=== PATIENT | female | born 1980 | race Caucasian/White ===

== ENCOUNTER → 2022-03-29 | Outpatient (CLI) | payer MEDICAID ==
[2022-03-29 11:33] LABS: Basophils # (A) 0.06 X 10*3/uL (0.00-0.10); Basophils % (A) 0.6 %; Eosinophils # (A) 0.16 X 10*3/uL (0.04-0.35); Eosinophils % (A) 1.5 %; HCT 34.2 % (37.2-46.3); HGB 10.1 g/dL (12.0-15.0); Immature Grans, Automated 0.4 %; Lymphocytes % (A) 22.2 %; MCH 23.5 pg (27.0-32.0); MCHC 29.5 g/dL (32.0-37.0); MCV 79.7 fL (80.0-97.0); Mean Platelet Volume 9.5 fL (9.5-12.2); Monocytes # (A) 0.77 X 10*3/uL (0.20-1.00); Monocytes % (A) 7.4 %; NRBC Per 100 WBC 0 /100 WBCS (0.0-0.0); Neutrophils # (A) 7.05 X 10*3/uL (1.80-7.70); Neutrophils % (A) 67.9 %; Platelet Count 402 X 10*3/uL (140-440); RBC 4.29 X 10*6/uL (4.10-5.20); RDW 15.9 % (11.5-14.5); WBC 10.38 X 10*3/uL (4.50-10.00)
[2022-03-29 12:09] LABS: Chol/HDL Ratio 4.54 Ratio
== END | disposition home or self-care (01) ==
LOC: LABWHC1 08:25
PROVIDERS: ATTEND Internal Medicine
DX: Z00.00 Encounter for general adult medical examination without abnormal findings (principal); E00.0 Congenital iodine-deficiency syndrome, neurological type
CPT/HCPCS: 36415; 80061; 84443; 85025

== ENCOUNTER → 2022-07-19 | Outpatient (CLI) | payer MEDICAID ==
[2022-07-19 23:26] LABS: Basophils # (A) 0.06 X 10*3/uL (0.00-0.10); Basophils % (A) 0.8 %; Eosinophils # (A) 0.13 X 10*3/uL (0.04-0.35); Eosinophils % (A) 1.7 %; HCT 33.2 % (37.2-46.3); HGB 9.8 g/dL (12.0-15.0); Immature Grans, Automated 0.3 %; Lymphocytes # (A) 2.12 X 10*3/uL (0.90-5.00); MCH 22.7 pg (27.0-32.0); MCHC 29.5 g/dL (32.0-37.0); MCV 76.9 fL (80.0-97.0); Mean Platelet Volume 9.4 fL (9.5-12.2); Monocytes # (A) 0.61 X 10*3/uL (0.20-1.00); Monocytes % (A) 7.8 %; NRBC Per 100 WBC 0 /100 WBCS (0.0-0.0); Neutrophils # (A) 4.91 X 10*3/uL (1.80-7.70); Neutrophils % (A) 62.4 %; Platelet Count 456 X 10*3/uL (140-440); RBC 4.32 X 10*6/uL (4.10-5.20); RDW 16.4 % (11.5-14.5); WBC 7.85 X 10*3/uL (4.50-10.00)
[2022-07-19 23:35] LABS: Erythrocyte Sedimentation Rate 23 mm/Hr (0-20)
[2022-07-19 23:42] LABS: ALT 12 U/L (8-44); AST 16 U/L (13-35); African American GFR (CKD) 118.3 (60.0-200.0); Albumin 4.3 g/dL (3.8-4.9); Albumin/Globulin Ratio 1.64 (1.60-3.17); Alkaline Phosphatase 91 U/L (41-126); Bilirubin, Conjugated <0.20 mg/dL (0.20-0.40); Blood Urea Nitrogen 12.3 mg/dL (9.0-27.0); Globulin 2.6 g/dL (1.6-3.3); Non-African American GFR(CKD) 102.1 (60.0-200.0); Total Bilirubin <0.15 mg/dL (0.30-1.20); Total Protein 6.9 g/dL (6.2-8.2)
[2022-07-19 23:44] LABS: Appearance,Urine Turbid (Clear); Bacteria,Urine 1+ /HPF (None Seen); Bilirubin,Urine Negative (Negative); Blood,Urine Moderate (Negative); Calcium Oxalate Crystals,Urine Present /LPF (None Seen); Color,Urine Yellow (Yellow); Ketones,Urine Trace mg/dL (Negative); Nitrite,Urine Negative (Negative); PH, Urine 5.5 (5.0-8.0); Specific Gravity,Urine 1.029 (1.001-1.030)
[2022-07-19 23:59] LABS: Hepatitis A Antibody IgM Nonreactive (Nonreactive); Hepatitis B Core IgM Nonreactive (Nonreactive); Hepatitis B Surface Antigen Nonreactive (Nonreactive); Hepatitis C IgG Antibody Nonreactive (Nonreactive)
== END | disposition home or self-care (01) ==
LOC: LABWHC1 10:38
PROVIDERS: ATTEND Internal Medicine Rheumatology
DX: M05.70 Rheumatoid arthritis with rheumatoid factor of unspecified site without organ or systems involvement (principal); M06.4 Inflammatory polyarthropathy; Z79.899 Other long term (current) drug therapy
CPT/HCPCS: 36415; 80074; 80076; 81001; 82565; 84520; 85025; 85652; 86140

== ENCOUNTER 2023-04-30 16:52 | Emergency (ER) | payer MEDICAID ==
[2023-04-30 17:04] VITALS: TEMP 98.1
--- NOTE | 2023-04-30 17:26 | ED ---
General Adult HPI - General Chief complaint: Extremity Injury, Upper Stated complaint: Fall Time Seen by Provider: 04/30/23 17:06 Source: patient, RN notes reviewed Mode of arrival: ambulatory Limitations: no limitations - History of Present Illness Initial comments: 43-year-old female presents to the emergency department for evaluation of left wrist pain following a fall. Patient states that she was on a ladder that was not locked when it slid down causing her to fall backwards. She reports falling around 4 feet. She states that she landed on her buttocks in the gravel and hit her left arm on the concrete. She did not hit her head or lose consciousness. She is not on blood thinners. She denies any other injury. She is able to ambulate. Denies significant past medical history. She does have an allergy to NSAIDs. - Related Data Previous Rx's Medication Instructions Recorded Cephalexin [Keflex] 500 mg PO Q6HR #40 cap 04/30/23 HYDROcodone/APAP 5-325MG [[place] 1 tab PO Q4HR PRN 3 Days #18 tab 04/30/23 5-325] Allergies Allergy/AdvReac Type Severity Reaction Status Date / Time NSAIDS (Non-Steroidal Allergy Unknown Verified 04/30/23 16:58 Anti-Inflamma Review of Systems ROS Statement: Those systems with pertinent positive or pertinent negative responses have been documented in the HPI. ROS Other: All systems not noted in ROS Statement are negative. Past Medical History Additional Past Medical History / Comment(s): RA History of Any Multi-Drug Resistant Organisms: None Reported Past Surgical History: Section, Cholecystectomy, Tonsillectomy Past Psychological History: No Psychological Hx Reported Smoking Status: Never smoker Past Alcohol Use History: None Reported Past Drug Use History: None Reported General Exam Limitations: no limitations General appearance: alert, in no apparent distress Head exam: Present: atraumatic, normocephalic, normal inspection Eye exam: Present: normal appearance, PERRL, EOMI. Absent: scleral icterus, conjunctival injection, periorbital swelling ENT exam: Present: normal exam, mucous membranes moist Neck exam: Present: normal inspection. Absent: tenderness, meningismus, lymphadenopathy Respiratory exam: Present: normal lung sounds bilaterally. Absent: respiratory distress, wheezes, rales, rhonchi, stridor Cardiovascular Exam: Present: regular rate, normal rhythm, normal heart sounds. Absent: systolic murmur, diastolic murmur, rubs, gallop, clicks GI/Abdominal exam: Present: soft, normal bowel sounds. Absent: distended, tenderness, guarding, rebound, rigid Extremities exam: Present: tenderness, normal capillary refill, other (Deformity to the left wrist with dorsal angulation). Absent: full ROM Back exam: Present: normal inspection Neurological exam: Present: alert, oriented X3 Psychiatric exam: Present: normal affect, normal mood Skin exam: Present: warm, dry. Absent: intact Course Vital Signs 04/30/23 04/30/23 04/30/23 16:53 18:55 19:18 Temperature 98.1 F Pulse Rate 94 86 82 Respiratory 16 18 18 Rate Blood Pressure 142/90 118/90 O2 Sat by Pulse 99 100 100 Oximetry 04/30/23 04/30/23 04/30/23 19:19 19:24 19:29 Temperature Pulse Rate 80 86 87 Respiratory 18 14 16 Rate Blood Pressure 118/100 123/91 125/98 O2 Sat by Pulse 100 100 98 Oximetry 04/30/23 04/30/23 04/30/23 19:34 19:39 19:40 Temperature Pulse Rate 82 77 79 Respiratory 18 18 18 Rate Blood Pressure 126/89 128/89 130/79 O2 Sat by Pulse 99 96 96 Oximetry 04/30/23 04/30/23 04/30/23 19:55 20:10 20:15 Temperature Pulse Rate 82 80 78 Respiratory 18 18 16 Rate Blood Pressure 117/74 117/74 118/58 O2 Sat by Pulse 98 99 98 Oximetry 04/30/23 04/30/23 20:30 21:00 Temperature Pulse Rate 74 74 Respiratory 18 18 Rate Blood Pressure 115/60 115/68 O2 Sat by Pulse 98 98 Oximetry Procedures - Orthopedic Fracture Reduction Fracture #1 Consent Obtained: verbal consent Side: left Fracture Reduction Location: radius Analgesia: procedural sedation Post Reduction X-rays Demonstrate: acceptable reduction Post-Reduction Neuro Exam: intact Post-Reduction Vascular Exam: intact Splint Applied: Yes Patient Tolerated Procedure: well, no complications - Orthopedic Splinting/Casting Injury #1 Side: left Upper Extremity Immobilizer: sugar tong splint Medical Decision Making - Medical Decision Making Was pt. sent in by a medical professional or institution (, PA, REFINERY OPERATOR ASSISTANT, urgent care, hospital, or care home...) When possible be specific @ -No Did you speak to anyone other than the patient for history (EMS, parent, family, police, friend...)? What history was obtained from this source @ -No Did you review nursing and triage notes (agree or disagree)? Why? @ -I reviewed and agree with nursing and triage notes Were old charts reviewed (outside hosp., previous admission, EMS record, old EKG, old radiological studies, urgent care reports/EKG's, care home records)? Report findings @ -No old charts were reviewed Differential Diagnosis (chest pain, altered mental status, abdominal pain women, abdominal pain men, vaginal bleeding, weakness, fever, dyspnea, syncope, headach e, dizziness, GI bleed, back pain, seizure, CVA, palpatations, mental health, musculoskeletal)? @ -Differential Musculoskeletal Muscular strain, contusion, ligament sprain, fracture, arthritis, septic arthritis, bursitis, cellulitis, muscle spasm, nerve compression, DVT, arterial occlusion, herpes zoster, electrolyte abnormality, tumor.... This is not meant to be in all inclusive list EKG interpreted by me (3pts min.). @ -None X-rays interpreted by me (1pt min.). @ -X-ray of the left wrist shows a distal radius fracture with comminution, 1 shaft width dorsal displacement. Postreduction x-ray shows improvement in the anatomical alignment of the fracture CT interpreted by me (1pt min.). @ -None done U/S interpreted by me (1pt. min.). @ -None done What testing was considered but not performed or refused? (CT, X-rays, U/S, labs)? Why? @ -None What meds were considered but not given or refused? Why? @ -None Did you discuss the management of the patient with other professionals (pro fessionals i.e. , PA, REFINERY OPERATOR ASSISTANT, lab, RT, psych nurse, social media designer, ceramics instructor, teacher, aadc plans staff officer, shoe caser)? Give summary @ -No Was smoking cessation discussed for >3mins.? @ -No Was critical care preformed (if so, how long)? @ -No Were there social determinants of health that impacted care today? How? (Homelessness, low income, unemployed, alcoholism, drug addiction, transportation, low edu. Level, literacy, decrease access to med. care, half-way, rehab)? @ -No Was there de-escalation of care discussed even if they declined (Discuss DNR or withdrawal of care, Hospice)? DNR status @ -No What co-morbidities impacted this encounter? (DM, HTN, Smoking, COPD, CAD, Cancer, CVA, ARF, Chemo, Hep., AIDS, mental health diagnosis, sleep apnea, morbid obesity)? @ -None Was patient admitted / discharged? Hospital course, mention meds given and route, prescriptions, significant lab abnormalities, going to OR and other pertinent info. @ -Discharged. Patient presented to the emergency department for evaluation of left wrist pain following a fall. Patient did not hit head, is not on thinners, no other injuries. Patient neurovascular intact. X-rays obtained which show displaced comminuted fracture of the left distal radius. Patient received 2 mg IV Dilaudid. Updated tetanus vaccination. Patient received 2 g of Ancef. Procedural sedation was performed with Dr. Benitez. Postreduction x-ray shows improvement in the anatomical alignment of the fracture. Patient placed in his sugar-tong splint. Patient to follow-up with orthopedics on outpatient basis. Prescription sent to patient's pharmacy for Keflex for prophylaxis. Patient understanding agreeable discharge plan. Patient stable at time of discharge. Undiagnosed new problem with uncertain prognosis? @ -No Drug Therapy requiring intensive monitoring for toxicity (Heparin, Nitro, Insulin, Cardizem)? @ -No Were any procedures done? @ -Yes procedural sedation with reduction and splinting Diagnosis/symptom? @ -Distal radius fracture Acute, or Chronic, or Acute on Chronic? @ -Acute Uncomplicated (without systemic symptoms) or Complicated (systemic symptoms)? @ -Uncomplicated Side effects of treatment? @ -No Exacerbation, Progression, or Severe Exacerbation? @ -No Poses a threat to life or bodily function? How? (Chest pain, [place], [place], pneumonia, PE, COPD, DKA, ARF, appy, cholecystitis, CVA, Diverticulitis, Homicidal, Suicidal, threat to staff... and all critical care pts) @ -No Disposition Clinical Impression: Distal radius fracture, left Disposition: HOME SELF-CARE Condition: Stable Instructions (If sedation given, give patient instructions): Wrist Fracture in Adults (ED) Additional Instructions: Please follow up with orthopedics. Return to the emergency department for new or worsening symptoms. Prescriptions: Cephalexin [Keflex] 500 mg PO Q6HR #40 cap HYDROcodone/APAP 5-325MG [[place] 5-325] 1 tab PO Q4HR PRN 3 Days #18 tab PRN Reason: Pain Is patient prescribed a controlled substance at d/c from ED?: No Referrals: Nonstaff,Physician [REFERRING] - 1-2 days Lorena Alejandra DO [Doctor of Osteopathic Medicine] - 1-2 days
[2023-04-30] MEDS: HYDROmorphone 1 MG/ML 1 ML SYRINGE IM STA (17:36)
[2023-04-30] MEDS: HYDROmorphone 1 MG/ML 1 ML SYRINGE IVP STA ×2 (17:36→19:47)
--- NOTE | 2023-04-30 17:55 | XR ---
PROCEDURE: XR wrist limited LT - 3V DATE AND TIME: 04/30/2023 5:46 PM CLINICAL INDICATION: PHH; deformity, fell off ladder TECHNIQUE: Department protocol COMPARISON: None FINDINGS/IMPRESSION: Distal radius intra-articular fracture with comminution and one shaft width dorsal displacement and n early 2 shaft width override. No other fractures.
[2023-04-30] MEDS: SODIUM CHLORIDE 0.9% 1,000 ML IV STA (19:03)
[2023-04-30] MEDS: PROPOFOL 10 MG/ML 20 ML VIAL IV ONE (19:19)
[2023-04-30 19:21] VITALS: RESP 18
[2023-04-30] MEDS: DIPH,PERTUS(ACELL)TETVAC-LF 0.5 ML VIAL IM ONE (20:17)
--- NOTE | 2023-04-30 20:29 | XR ---
PROCEDURE: XR wrist limited LT - 3V DATE AND TIME: 04/30/2023 7:45 PM CLINICAL INDICATION: PHH; post reduction TECHNIQUE: Department protocol COMPARISON: 04/30/2023 earlier same day radiographs. FINDINGS/IMPRESSION: Post reduction views show interval improvement in the anatomic alignment and positioning of the dista l radius fracture. No other fractures.
[2023-04-30] MEDS: ACET/COD 300 MG/30 MG STARTER PACK 6 TAB BTL PO STA (21:09)
[2023-05-01 00:34] VITALS: BP 115/68; PULSE 74
== END 2023-04-30 21:20 | disposition home or self-care (01) ==
LOC: EC 16:52
DX: S52.572A Other intraarticular fracture of lower end of left radius, initial encounter for closed fracture (principal); Z23 Encounter for immunization; Z88.6 Allergy status to analgesic agent; W11.XXXA Fall on and from ladder, initial encounter
CPT/HCPCS: 73100; 90715; 25605; 99152; 99284; 96365; 96375; 96376; 96361; 90471; J0690; J1170; J2704

== ENCOUNTER 2023-05-07 08:31 | Day surgery (SDC) | payer MEDICAID ==
--- NOTE | 2023-05-06 21:58 | P.HPOR ---
History of Present Illness H&P Date: 05/06/23 Subjective: This is a 43 year old female that presents today for initial evaluation regarding a left wrist injury that occurred on 04/30/2023 when she was on a ladder 4 to 6 feet in the air when she fell off and landed directly onto her left wrist. She was seen in the emergency department immediately afterwards where closed reduction and splinting was performed. She is right-hand dominant. She denies any prior injury to this wrist in the past. She had initial numbness and tingling present at the time of injury however, this improved after reduction. Physical Examination: LUE: AIN/PIN/Radial/Ulnar/Median motor intact. Radial/Ulnar/Median SILT. 2+/4 Radial/Ulnar pulses palpated. 5/5 APB, 5/5 FDI. Swelling of fingers present while in splint. Able to move all digits with sensation intact to tips of fingers. Imaging: X-Rays of the left wrist 2V taken in the ED on 04/30/23 demonstrate a intra- articular distal radius fracture with 150% initial dorsal displacement and shortening. Post reduction imaging demonstrates improved overall alignment with approximately 25% dorsal displacement. Impression: 1.) Left intra-articular distal radius fracture Plan: Diagnosis and treatment options were discussed. Due to the amount of residual displacement and unstable nature of the fracture pattern I recommend surgical intervention. She is scheduled for a left intra-articular distal radius fracture open reduction internal fixation. Risks and benefits of surgery including bleeding, infection, damage to surrounding tissue, need for further surgery, residual numbness were discussed and the patient wished to go forward with surgery. The patient was agreeable with this plan. CC: Esther Friedman DO -Jose Rodriguez DO Orthopedic Hand/Upper Extremity Surgeon Past Medical History Past Medical History: GERD/Reflux, Rheumatoid Arthritis (RA), Skin Disorder, Thyroid Disorder Additional Past Medical History / Comment(s): gastroparesis, IBS, Fx left arm, tinea versicolor History of Any Multi-Drug Resistant Organisms: None Reported Past Surgical History: Section, Cholecystectomy, Tonsillectomy, Tubal Ligation Additional Past Surgical History / Comment(s): wisdom teeth removed Past Anesthesia/Blood Transfusion Reactions: Postoperative Nausea & Vomiting (PONV) Smoking Status: Former smoker, Light tobacco smoker - Past Family History Sister(s) Family Medical History: Pulmonary Embolus Mother Family Medical History: Hyperlipidemia, Hypertension Father Family Medical History: Hypertension Medications and Allergies Home Medications Medication Instructions Recorded Confirmed Type Cephalexin [Keflex] 500 mg PO Q6HR #40 cap 04/30/23 05/04/23 Rx HYDROcodone/APAP 5-325MG [[place] 1 tab PO Q4HR PRN 3 Days #18 tab 04/30/23 05/04/23 Rx 5-325] Amitriptyline HCl 10 mg PO HS 05/04/23 05/04/23 History Etanercept [Enbrel Mini] 50 mg SQ DIRECTED 05/04/23 05/04/23 History Hyoscyamine Sulfate [Levsin] 0.125 mg PO DIRECTED PRN 05/04/23 05/04/23 History Levothyroxine Sodium [Synthroid] 75 mcg PO DAILY 05/04/23 05/04/23 History Pantoprazole Sodium 40 mg PO BID 05/04/23 05/04/23 History Promethazine HCl 12.5 mg PO DIRECTED PRN 05/04/23 05/04/23 History busPIRone HCL [Buspar] 7.5 mg PO TID 05/04/23 05/04/23 History ondansetron HCL [Ondansetron HCl] 8 mg PO DIRECTED PRN 05/04/23 05/04/23 History predniSONE 5 mg PO DIRECTED PRN 05/04/23 05/04/23 History Allergies Allergy/AdvReac Type Severity Reaction Status Date / Time NSAIDS (Non-Steroidal Allergy Anaphylaxis Verified 05/04/23 10:12 Anti-Inflamma Physical Examination Osteopathic Statement: *. No significant issues noted on an osteopathic structural exam other than those noted in the History and Physical/Consult.
[~2023-05-07 08:31] MED LIST: DEXAMETHASONE SOD PHOSPHATE 4 MG/ML 1 ML VIAL IV ONE; HYDROmorphone 0.5 MG/0.5 ML SYRINGE IVP PRN; LIDOCAINE 1% (10MG/ML) FOR IV START INTRADERMA PRN; ONDANSETRON 4 MG/2 ML VIAL IVP ONE; droPERidol 5 MG/2 ML VIAL IVP ONE
[2023-05-07 09:19] LABS: Glucose,Whole Blood 100 mg/dL (70-110)
[2023-05-07 09:52] VITALS: TEMP 98.1
[2023-05-07] MEDS: LACTATED RINGERS 1,000 ML IV SCH (09:53)
[2023-05-07] MEDS: SCOPOLAMINE 1 MG/72 HR PATCH TRANSDERM ONE (09:54)
[2023-05-07] MEDS: ONDANSETRON 4 MG/2 ML VIAL IVP ONE (10:01)
[2023-05-07] MEDS: DEXAMETHASONE SOD PHOSPHATE 4 MG/ML 1 ML VIAL IVP ONE (10:01)
[2023-05-07] MEDS: MIDAZOLAM 2 MG/2 ML VIAL IVP ONE (10:02)
[2023-05-07] MEDS: fentaNYL (PF) 50 MCG/1 ML VIAL IVP ONE (10:03)
--- NOTE | 2023-05-07 10:17 | P.ANPRN ---
Procedure Note - Anesthesia - Nerve Block Performed Left Supraclavicular Single Time Out Performed: Yes (1002) Date of Procedure: 05/07/23 Procedure Start Time: 10:05 Procedure Stop Time: 10:10 Location of Patient: PreOp Indication: Acute Post-Operative Pain, Requested by Surgeon Sedation Type: Sedate with meaningful contact maintained Preparation: Sterile Prep, Sterile Dressing Position: Sitting Catheter: None Needle Types: Pajunk Needle Gauge: Other (see comment) (22G - 50mm) Ultrasound used to visualize needle placement: Yes Ultrasound used to observe medication spread: Yes Injectate: 0.5% Ropivacaine (see comment for volume) (21 mL of block solution , containing 20 ML of 0.5% ropivacaine mixed with 4 mg of dexamethasone) Blood Aspirated: No Pain Paresthesia on Injection Noted: No Resistance on Injection: Normal Image Stored and Saved: Yes Events: Uneventful and Well Tolerated
[2023-05-07 10:23] VITALS: RESP 16
[2023-05-07] MEDS ORDERED: LIDOCAINE 1% INJ 10MG/ML (20 ML MDV) ONE (10:27)
[2023-05-07] MEDS ORDERED: MIDAZOLAM 2 MG/2 ML VIAL ONE (10:27)
[2023-05-07] MEDS ORDERED: DEXAMETHASONE SOD PHOSPHATE 4 MG/ML 1 ML VIAL ONE (10:27)
[2023-05-07] MEDS ORDERED: PROPOFOL 10 MG/ML 20 ML VIAL IV ONE (10:27)
[2023-05-07] MEDS ORDERED: SODIUM CHLORIDE 0.9% (PF) 10 ML VIAL ONE (10:27)
[2023-05-07] MEDS ORDERED: KETAMINE HCL IN 0.9 % NACL 50 MG/5 ML SYRINGE ONE (10:27)
[2023-05-07] MEDS ORDERED: ROPIVACAINE 5 MG/ML 30 ML VIAL ONE (10:27)
[2023-05-07] MEDS: LACTATED RINGERS 1,000 ML IV ONE (12:12)
[2023-05-07 12:57] VITALS: PULSE 85
[2023-05-07 13:29] VITALS: BP 113/81
--- NOTE | 2023-05-07 20:46 | P.OP ---
Date of Procedure: 05/07/23 Preoperative Diagnosis: Left intra-articular distal radius fracture Postoperative Diagnosis: Left intra-articular distal radius fracture Procedure(s) Performed: Open reduction internal fixation of left intra-articular distal radius fracture, 3 part. Implants: Daniel variax volar distal radius locking plate Anesthesia: regional Surgeon: Jose Rodriguez Manager Professional Development #1: Reese Rodriguez Estimated Blood Loss (ml): 0 Pathology: none sent Condition: stable Description of Procedure: This is a 43 year old female who sustained a displaced intra-articular distal radius fracture and presents today for open reduction internal fixation of their left distal radius fracture. Risks and benefits of surgery were discussed with the patient including bleeding, damage to surrounding tissue, infection, need for further surgery as well as risks of anesthesia including pulmonary embolism and even and the patient wished to proceed with surgical intervention. The patients was seen in the pre-operative area by myself. Consent and H&P were completed and updated. The correct extremity was marked in the pre-operative area by myself and all other questions were answered. Operative Narrative: The patient was brought to the operating room by the department of anesthesia. They remained on the portable stretcher and a rolling hand table was brought to the side of the operative extremity. Pre-operative time out was performed indicating the correct patient, procedure and laterality. All in the room agreed. Pre-operative antibiotics were given prior to skin incision. The patient was then drifted off to sleep by the department of anesthesia. A nonsterile tourniquet was then applied to the operative extremity and the left upper extremity was then prepped and draped in normal sterile fashion. The operative extremity was the exsanguinated with an esmarch bandage and the tourniquet was inflated to 250mmHg. A longitudinal incision centered over the FCR tendon was made with a 15-blade scalpel. Blunt dissection was taken down to the FCR tendon sheath using Bovie cautery for meticulous hemostasis. The FCR sheath was opened with tenotomy scissors. The floor of the FCR sheath was then incised with a 15-blade scalpel and the FPL tendon and muscle belly was swept bluntly in an ulnar direction to reveal the pronator quadratus. Pronator quadratus was sharply incised with a 15-blade scalpel along the radial border of the distal radius, coming across transversely parallel to the joint at the level of the watershed line, radial artery was identified and protected. Periosteal elevator was then used to elevate the pronator quadratus off the distal radius from a radial to ulnar fashion. A [place] elevator was used to lever the distal piece back into place and free up the fractured fragments. There was significant pull of the distal fragment radially preventing reduction therefore the brachioradialis tendon was released from it's comminuted attachments at the radial styloid. After the released the fracture was able to now be reduced and correct the radial translation of the distal fragment. There was extensive comminution present both volarly, radially and dorsally. A intra-articular split was identified in between the scaphoid and lunate facet of the radius, this was able to be reduced with traction. A narrow width 3 hole [place] Variax 2 titanium volar locking distal radius plate was sized to the patients anatomy, however with only 3 screws available distally there would not be adequate fixation in the separate articular fragments, therefore the standard plate size was utilized for more fixation on the volar lunate facet and radial styloid fragments. The patient had a relatively narrow and short distal radius but the standard plate was able to be manipulated to fit the patients anatomy and provide adequate stabilization options for her comminuted distal articular fragments. This was placed on the distal radius under direct visualization and the oblong hole was drilled and filled with a non-locking screw. The fracture was then reduced to the plate distally and a k-wire was placed in the ulnar most k-wire hole in the proximal row. Fluoroscopy was then utilized to confirm correct placement of plate in the radial/ulnar plane and distal k-wire placement was confirmed to be proximal to the subchondral bone on 20 degree elevated lateral view confirming extra- articular screw placement. Judaism of radial height, inclination and volar tilt was achieved. The distal rows and radial styloid screw holes were then drilled and filled from ulnar to radial with locking screws. Attention was then brought to the proximal shaft screws. Proximal nonlocking and locking shaft screws were drilled, measured, and filled. The wrist joint was the ranged and full smooth flexion/extension with no crepitus appreciated. Final imaging was taken confirming extra-articular placement of distal screws at DRUJ and radiocarpal joint. The wound was then irrigated. Subcutaneous closure was performed with 4-0 monocryl suture and steri strips. Sterile dressing consisting of 4x4s, and a volar plaster splint was applied. Tourniquet was let down and the hand had immediate perfusion. The patient was then woken by the epartment of anesthesia and transferred to PACU in stable condition. Reese GARCIA was present for the case and assisted in major portions of the operation and hardware placement. Jose Rodriguez D.O. Orthopedic Hand/Upper Extremity Surgeon
== END 2023-05-07 13:30 | disposition home or self-care (01) ==
LOC: OR 08:31
PROVIDERS: ATTEND Orthopaedic Surgery Hand Surgery
DX: S52.572A Other intraarticular fracture of lower end of left radius, initial encounter for closed fracture (principal); G89.18 Other acute postprocedural pain; K21.9 Gastro-esophageal reflux disease without esophagitis; M06.9 Rheumatoid arthritis, unspecified; E07.9 Disorder of thyroid, unspecified; K58.9 Irritable bowel syndrome, unspecified; K31.84 Gastroparesis; B35.9 Dermatophytosis, unspecified; Z87.891 Personal history of nicotine dependence; Z88.6 Allergy status to analgesic agent; Z79.890 Hormone replacement therapy; Z79.899 Other long term (current) drug therapy; Z90.49 Acquired absence of other specified parts of digestive tract; Z98.51 Tubal ligation status; Z98.890 Other specified postprocedural states; X58.XXXA Exposure to other specified factors, initial encounter; W11.XXXA Fall on and from ladder, initial encounter
CPT/HCPCS: 25609; 81025; 64415; C1713; J2250; J1100; J0690; J2405; J2001; J2795; J2704; J3010

== ENCOUNTER → 2024-06-06 | Outpatient (CLI) | payer MEDICAID ==
--- NOTE | 2024-06-06 14:13 | XR ---
EXAMINATION TYPE: XR cervical spine comp DATE OF EXAM: 06/06/2024 2:04 PM COMPARISON: None CLINICAL INDICATION: Female, 44 years old with history of PAIN; PHH, pain TECHNIQUE: The cervical spine was imaged in frontal, lateral, odontoid and bilateral oblique. FINDINGS: The osseous structures show normal alignment without evidence of an acute fracture. There are osteoph ytes noted throughout the cervical spine on the anterior and lateral aspects of the vertebral bodies. The intervertebral disk spaces are narrowed at multiple levels. Pedicles are intact. Soft tissues a re within normal limits. The odontoid appears intact. IMPRESSION: 1. No fracture or dislocation. 2. Mild degenerative disc disease changes of the cervical spine. [facility], , 06/06/2024 2:11 PM
--- NOTE | 2024-06-06 14:15 | XR ---
EXAMINATION TYPE: XR pelvis AP view DATE OF EXAM: 06/06/2024 2:04 PM COMPARISON: None CLINICAL INDICATION: Female, 44 years old with history of PAIN; pain [facility] TECHNIQUE: XR pelvis AP view, examined in a single projection. FINDINGS: There is no evidence of fracture or dislocation. There is no soft tissue abnormality. No a bnormal calcifications are present. The spine appears intact. The hips appear intact. Osteophyte form ation of the superior acetabulum bilaterally with mild joint space narrowing. IMPRESSION: No acute osseous pathology. Mild degeneration changes of the hip. [facility], , 06/06/2024 2:13 PM
--- NOTE | 2024-06-06 14:19 | XR ---
EXAMINATION TYPE: XR wrist complete BILATERAL, XR hand complete bilateral DATE OF EXAM: 06/06/2024 2:05 PM COMPARISON: None CLINICAL INDICATION: Female, 44 years old with history of PAIN; PHH, pain TECHNIQUE: XR wrist complete BILATERAL, XR hand complete bilateral; wrist evaluated in examined in t he Frontal, navicular, lateral, and oblique. And evaluated in frontal lateral and oblique views. FINDINGS: No acute osseous pathology, joint dislocation, or joint effusion. No evidence of any soft tissue swelling is seen. No significant degeneration. IMPRESSION: 1. No acute osseous pathology. 2. No significant degeneration. 3. Intact distal left radius fracture. [facility], , 06/06/2024 2:16 PM
--- NOTE | 2024-06-06 14:21 | XR ---
EXAMINATION TYPE: XR foot complete bilateral DATE OF EXAM: 06/06/2024 2:05 PM COMPARISON: None CLINICAL INDICATION: Female, 44 years old with history of PAIN; PHH, pain TECHNIQUE: XR foot complete bilateral examined in the AP, oblique, and lateral projections. FINDINGS: No evidence of any acute osseous pathology. Calcaneal Achilles enthesophyte bilaterally. Calcaneal pl lesa spurring is present bilaterally. No significant degeneration changes throughout the joints of t he foot. IMPRESSION: 1. No evidence of acute fracture. 2. No significant degeneration changes the joints of the foot [facility], , 06/06/2024 2:18 PM
[2024-06-06 20:41] LABS: Basophils # (A) 0.06 X 10*3/uL (0.00-0.10); Basophils % (A) 0.6 %; Eosinophils # (A) 0.19 X 10*3/uL (0.04-0.35); Eosinophils % (A) 1.8 %; HCT 39.9 % (37.2-46.3); HGB 12.6 g/dL (12.0-15.0); Lymphocytes % (A) 19.3 %; MCH 30.3 pg (27.0-32.0); MCHC 31.6 g/dL (32.0-37.0); MCV 95.9 FL (80.0-97.0); Mean Platelet Volume 9.5 FL (9.5-12.2); Monocytes # (A) 0.65 X 10*3/uL (0.20-1.00); Monocytes % (A) 6.3 %; NRBC Per 100 WBC 0 X 10*3/uL (0.00-0.01); Neutrophils # (A) 7.42 X 10*3/uL (1.80-7.70); Neutrophils % (A) 71.8 %; Platelet Count 327 X 10*3/uL (140-440); RBC 4.16 X 10*6/uL (4.10-5.20); RDW 13.3 % (11.5-14.5); WBC 10.34 X 10*3/uL (4.50-10.00)
[2024-06-06 21:13] LABS: Erythrocyte Sedimentation Rate 21 mm/Hr (0-20)
[2024-06-06 21:18] LABS: Hepatitis B Surface Antigen Nonreactive (Nonreactive); Hepatitis C IgG Antibody Nonreactive (Nonreactive)
[2024-06-06 21:27] LABS: Appearance,Urine Clear (Clear); Bilirubin,Urine Negative (Negative); Blood,Urine Negative (Negative); Color,Urine Yellow (Yellow); Ketones,Urine Negative (Negative); Nitrite,Urine Negative (Negative); Specific Gravity,Urine 1.016 (1.001-1.030); Urobilinogen,Urine 0.2 E.U./DL
[2024-06-06 21:31] LABS: ALT 20 U/L (8-44); AST 20 U/L (13-35); Albumin 4.3 g/dL (3.8-4.9); Albumin/Globulin Ratio 1.65 Ratio (1.60-3.17); Alkaline Phosphatase 98 U/L (41-126); Blood Urea Nitrogen 8.4 mg/dL (9.0-27.0); Calcium 9.2 mg/dL (8.7-10.3); Chloride 105 mmol/L (96-109); Creatine Kinase 41 U/L (26-186); Globulin 2.6 g/dL (1.6-3.3); Glucose 99 mg/dL (70-110); Sodium 141 mmol/L (135-145); Total Bilirubin 0.2 mg/dL (0.3-1.2); Total Protein 6.9 g/dL (6.2-8.2)
--- NOTE | 2024-06-07 13:07 | XR ---
EXAMINATION TYPE: XR ankle complete bilateral DATE OF EXAM: 06/06/2024 2:05 PM COMPARISON: 06/06/2024 CLINICAL INDICATION: Female, 44 years old with history of PAIN; PHH, pain TECHNIQUE: XR ankle complete bilateral; frontal, lateral and oblique projections. FINDINGS: There is no evidence of acute osseous pathology. No evidence of subluxation or dislocation. Kager's fat pad is intact. Soft tissues are within normal limits. No radiopaque foreign bodies are identified . Calcaneal plantar spurring is present. Calcaneal Achilles enthesophyte. IMPRESSION: No evidence of acute fracture. [facility], , 06/07/2024 1:05 PM
[2024-06-07 15:26] LABS: APTT 47 Sec(s) (<43); APTT 1:1 Mix 38 Sec(s) (<43); Dilute Russell Viper Venom 32 Sec(s) (<44)
== END | disposition home or self-care (01) ==
LOC: LABWHC1 13:04
PROVIDERS: ATTEND Internal Medicine Rheumatology
DX: M50.30 Other cervical disc degeneration, unspecified cervical region (principal); M79.671 Pain in right foot; M06.00 Rheumatoid arthritis without rheumatoid factor, unspecified site; S52.502A Unspecified fracture of the lower end of left radius, initial encounter for closed fracture; X58.XXXA Exposure to other specified factors, initial encounter; Z79.620 Long term (current) use of immunosuppressive biologic
CPT/HCPCS: 36415; 72050; 72170; 80053; 81003; 82306; 82550; 84550; 85025; 85613; 85652; 85730; 86140; 86803; 87340; 87522